=== PATIENT | female | born 1995 | race Caucasian/White ===

== ENCOUNTER 2019-11-26 12:33 | Emergency (ER) | payer OTHER ==
[~2019-11-26] VITALS: Ht 154.9 cm; Wt 67.4 kg
[~2019-11-26 12:33] MED LIST: DIBU10OI TOP; DOCU100C16 PO; IBUP80TA PO
[2019-11-26 13:31] LABS: BASO % 0.3 % (0.0-1.0); EOS % 0.2 % (0.0-3.0); HEMATOCRIT 41.4 % (36.0-47.0); HEMOGLOBIN 12.8 g/dl (12.0-15.5); LYMPH # 0.6 10^3/uL (1.5-5.0); LYMPH % 4.3 % (24.0-44.0); MEAN CORPUSCULAR HEMOGLOBIN 27.2 pg (27.0-33.0); MEAN CORPUSCULAR HGB CONC 30.9 g/dl (32.0-36.5); MEAN CORPUSCULAR VOLUME 87.9 fl (80.0-96.0); MONO # 0.3 10^3/uL (0.0-0.8); MONO % 2.4 % (0.0-5.0); NEUTROPHILS # 11.7 10^3/uL (1.5-8.5); NEUTROPHILS % 92.3 % (36.0-66.0); PLATELET COUNT, AUTOMATED 251 10^3/uL (150-450); RED BLOOD COUNT 4.71 10^6/uL (4.00-5.40); WHITE BLOOD COUNT 12.7 10^3/uL (4.0-10.0)
[2019-11-26 13:53] LABS: C REACTIVE PROTEIN QUANTITATIV 2.25 MG/DL (0.00-0.30); CALCIUM LEVEL 9.6 MG/DL (8.5-10.1); CREATININE FOR GFR 1.2 MG/DL (0.55-1.30); GLOMERULAR FILTRATION RATE 58.3 (>60); POTASSIUM SERUM 4.1 MEQ/L (3.5-5.1)
[2019-11-26 14:06] LABS: ERYTHROCYTE SEDIMENTATION RATE 16 mm/hr (0-20)
[2019-11-26] MEDS ORDERED: KEFL500C17 PO (14:29)
[2019-11-26] MEDS ORDERED: CEPHALEXIN 500 MG CAP PO ONE (14:30)
[2019-11-26 14:36] VITALS: BP 111/62
== END 2019-11-26 14:38 | disposition home or self-care (01) ==
LOC: M ED 12:33
DX: N61.0 Mastitis without abscess (principal); R50.9 Fever, unspecified; M79.10 Myalgia, unspecified site; R51 Headache; Z79.899 Other long term (current) drug therapy

== ENCOUNTER 2019-11-28 12:47 | Emergency (ER) | payer OTHER ==
[~2019-11-28] VITALS: Ht 154.9 cm; Wt 66.8 kg
[~2019-11-28 12:47] MED LIST changes: +KEFL500C17 PO
[2019-11-28] MEDS ORDERED: PREN27TA3 (12:55)
--- NOTE | 2019-11-28 14:16 | REP ---
Focused left breast sonography: History: History of mastitis. A fever. Increased swelling. Rule out abscess. Findings: The retroareolar region of the left breast is scanned and 11 to 1 o'clock region is scanned. A few prominent ducts are seen. There is no evidence of abscess or other drainable fluid collection. No cyst or mass is seen. Impression: No abscess seen. Mildly prominent ducts. BIRADS category II benign findings. Clinical follow-up is advised. Electronically Signed by Deepak Denson MD 11/28/2019 02:07 P
[2019-11-28 15:33] LABS: HEMATOCRIT 38.6 % (36.0-47.0); MEAN CORPUSCULAR HEMOGLOBIN 27.1 pg (27.0-33.0); MEAN CORPUSCULAR HGB CONC 31.1 g/dl (32.0-36.5); MEAN CORPUSCULAR VOLUME 87.1 fl (80.0-96.0); PLATELET COUNT, AUTOMATED 221 10^3/uL (150-450); RED BLOOD COUNT 4.43 10^6/uL (4.00-5.40); WHITE BLOOD COUNT 5.2 10^3/uL (4.0-10.0)
[2019-11-28 15:46] LABS: BLOOD UREA NITROGEN 12 MG/DL (7-18); CALCIUM LEVEL 8.6 MG/DL (8.5-10.1); CARBON DIOXIDE LEVEL 25 MEQ/L (21-32); CHLORIDE LEVEL 106 MEQ/L (98-107); CREATININE FOR GFR 0.77 MG/DL (0.55-1.30); GLOMERULAR FILTRATION RATE > 60.0 (>60); GLUCOSE, FASTING 111 MG/DL (70-100); POTASSIUM SERUM 3.5 MEQ/L (3.5-5.1); SODIUM LEVEL 139 MEQ/L (136-145)
[2019-11-28] MEDS ORDERED: CLEO300C2 PO (17:42)
[2019-11-28] MEDS ORDERED: CLINDAMYCIN 150 MG CAP PO ONE (17:45)
[2019-11-28 17:47] VITALS: BP 118/70
--- NOTE | 2019-12-01 17:03 | ED PDOC ---
Post-Departure Follow-Up daniel purcell faxed formal report of breast us for fu Andrew Louie MD Dec 01, 2019 17:03
== END 2019-11-28 17:50 | disposition home or self-care (01) ==
LOC: M ED 12:47
DX: N61.0 Mastitis without abscess (principal); Z79.899 Other long term (current) drug therapy